=== PATIENT | female | born 1950 | race Hispanic/Latino ===

== ENCOUNTER 2023-10-14 06:48 | Day surgery (SDC) | payer OTHER ==
[2023-10-14] VITALS (9 sets, daily range): BP systolic 90–149; BP diastolic 53–88; PULSE 64–79; RESP 14–17
[~2023-10-14] VITALS: Ht 132.1 cm; Wt 45.5 kg
[~2023-10-14 06:48] MED LIST: AEC81 PO; CALC500T13 PO; CHOL500051 PO; LISI20TA24 PO; OMEP20TA20 PO; ROSU5TAB12 PO; VITAMIN B12 PO
[2023-10-14] MEDS ORDERED: PROPOFOL 10 MG/ML 20ML VIAL IV ONE (09:00)
[2023-10-14] MEDS ORDERED: 0.9%NACL 1000ML 1,000 ML IV ONE (11:25)
== END 2023-10-14 10:20 | disposition home or self-care (01) ==
LOC: ENDO 06:48 → DAH 06:48 → ENDO 10:20
PROVIDERS: ATTEND Internal Medicine Gastroenterology
DX: R93.3 Abnormal findings on diagnostic imaging of other parts of digestive tract (principal); K29.50 Unspecified chronic gastritis without bleeding; K31.89 Other diseases of stomach and duodenum; K86.9 Disease of pancreas, unspecified; E78.00 Pure hypercholesterolemia, unspecified; E11.9 Type 2 diabetes mellitus without complications; I10 Essential (primary) hypertension; K31.84 Gastroparesis; M19.90 Unspecified osteoarthritis, unspecified site; K57.30 Diverticulosis of large intestine without perforation or abscess without bleeding; Z82.49 Family history of ischemic heart disease and other diseases of the circulatory system; Z83.3 Family history of diabetes mellitus; Z80.9 Family history of malignant neoplasm, unspecified; Z79.82 Long term (current) use of aspirin; Z79.899 Other long term (current) drug therapy; Z98.891 History of uterine scar from previous surgery
CPT/HCPCS: 43237; 82948 ×2; 43239; J7030 ×2; J2704; A4620; A4215 ×2; A4223; A7002; A4222; A4221; A4663; A4216; A4606; J3490